=== PATIENT | male | born 1980 | race Caucasian/White ===

== ENCOUNTER 2016-11-13 10:58 | Emergency (ER) | payer MEDICAID ==
[2016-11-13] MEDS ORDERED: ONDANSETRON 4 MG VIAL ONE (13:11)
[2016-11-13] MEDS ORDERED: SODIUM CHLORIDE 0.9% 1,000 ML ONE (13:11)
== END 2016-11-13 15:13 | disposition home or self-care (01) ==
LOC: ER 10:58
DX: R11.0 Nausea (principal)
CPT/HCPCS: 36415; 71020; 74020; 80053; 81001; 83690; 85025; 87088; 96361; 96374